=== PATIENT | male | born 1990 | race African-American/Black ===

== ENCOUNTER → 2016-09-17 | Outpatient (REF) ==
[~2016-09-17] MED LIST: ATARAX25 MG PO; NO HOME MEDICATIONS; [UNRECOGNIZED DRUG - OTHER]
== END ==
LOC: WSOH 10:07
DX: Z02.1 Encounter for pre-employment examination (principal)

== ENCOUNTER → 2016-09-29 | Outpatient (REF) | LOC: WSOH 08:28 | DX: Z00.00 Encounter for general adult medical examination without abnormal findings (principal) ==

== ENCOUNTER → 2022-03-12 | Outpatient (CLI) | payer MEDICAID | LOC: COL.RAD 13:36 | DX: M54.50 Low back pain, unspecified (principal) ==

== ENCOUNTER 2024-02-01 09:08 | Emergency (ER) | payer MEDICARE, MEDICAID ==
[~2024-02-01] VITALS: Ht 180.3 cm; Wt 121.8 kg
[2024-02-01 09:14] VITALS: TEMP 97.6
[2024-02-01] MEDS ORDERED: Acetaminophen 500 MG TAB PO ONE (11:00)
[2024-02-01] MEDS ORDERED: MOTRIN 800800 MG/TAB PO (12:18)
[2024-02-01] MEDS ORDERED: FLEXERIL 1010 MG/TAB PO (12:18)
[2024-02-01 12:29] VITALS: BP 130/91; PULSE 70
== END 2024-02-01 12:30 | disposition home or self-care (01) ==
LOC: COL.ER 09:08
DX: S09.90XA Unspecified injury of head, initial encounter (principal); M54.50 Low back pain, unspecified; V89.2XXA Person injured in unspecified motor-vehicle accident, traffic, initial encounter